=== PATIENT | female | born 1985 | race Hispanic/Latino ===

== ENCOUNTER 2020-04-04 21:18 | Emergency (ER) | payer SELFPAY ==
[2020-04-04 21:21] VITALS: BP 118/72; PULSE 80; RESP 18; TEMP 36.7; O2SAT 98
--- NOTE | 2020-04-05 02:35 | ED.EXTPRO ---
HPI - Extremity Problem General Chief complaint: Extremity Problem,Nontraumatic Stated complaint: Shortness of breath Time Seen by Provider: 04/05/20 02:33 Source: patient, family and EMS Mode of arrival: EMS Limitations: no limitations History of Present Illness HPI Narrative: 34-year-old woman with no significant past medical history presents to the emergency room after experiencing tachypnea tachycardia carpal pedal spasm and significant anxiety. She states that she was driving not having a particularly bad day or dealing with any acute anxiety or issues when she began to breathe faster for unclear reasons and then developed carpal pedal spasms. Not knowing what this was she became even more anxious more short of breath and developed mild chest pain. She pulled to the side of the road by [employer] and asked her children to get her a glass of water from [employer]. As symptoms continue to worsen 911 was called. On arrival in the emergency department she is clearly anxious, hyperventilating and experiencing carpal pedal spasm Related Data Allergies Allergy/AdvReac Type Severity Reaction Status Date / Time No Known Drug Allergies Allergy Verified 04/04/20 21:23 Review of Systems Review of Systems Narrative: Pertinent positive and negative findings as per HPI Remainder of review of systems is otherwise unremarkable for Constitutional: Fevers, chills, weakness ENT: No sore throat, neck pain, ear pain CV: Chest pain, palpitations, dyspnea on exertion Respiratory: Cough, wheeze, dyspnea GI: Nausea, vomiting, diarrhea, change in bowel habits, black or bloody stools : Dysuria, hematuria, flank pain MS: Muscle weakness, numbness, joint swelling or warmth Skin: Rashes, nonhealing lesions Neuro: Syncope, dizziness, tingling Psych: Depression, anxiety, suicidal ideation Patient History Social History Smoking Status: Never smoker Smoking Status: Never smoker alcohol intake frequency: 0-2 drinks per day Substance Use Type: does not use Exam Narrative Exam Narrative: Physical exam was approximately 2 hours after arrival and after she has stopped hyperventilating General: Healthy appearing, in no acute distress. Able to give a complete and coherent history. Well-nourished well-developed HEENT: Moist mucous membranes, normal sclera with reactive pupils, Respiratory: Lungs are clear to auscultation, no wheezing no rales no rhonchi. Full and symmetrical air movement Cardiac: Regular rate and rhythm no murmurs no bruits Abdomen: Soft nontender good bowel tones, no flank pain Skin: Warm and dry, no rashes Neurologic: Grossly neurologically intact with no obvious asymmetries or abnormalities Extremities: No trauma, well perfused Psych: Cooperative, appropriate insight and affect Initial Vital Signs Initial Vital Signs: Vital Signs Temperature 98.1 F 04/04/20 21:21 Pulse Rate 80 04/04/20 21:21 Respiratory Rate 18 04/04/20 21:21 Blood Pressure 118/72 04/04/20 21:21 Pulse Oximetry 98 04/04/20 21:21 Course Vital Signs Vital signs: Vital Signs - 8 hr 04/05/20 02:45 Pulse Rate 88 Respiratory Rate 16 Blood Pressure 122/84 Pulse Oximetry 99 MDM - Extremity (Nontraumatic) MDM Narrative Medical decision making narrative: 34-year-old woman presents with significant hyperventilation carpal pedal spasm with no clear reasons for why this started. She does not describe significant anxiety or situational stressors. She is placed on monitors and reassurance is given. As her breathing slows her CO2 levels return to normal in the carpal pedal spasms resolved she is feeling significantly better. Exam is reassuring and she is having no symptoms at all the time of discharge. Most likely diagnosis this point is panic attack. She is encouraged to follow-up with her primary care physician is safe for home discharge at this time Discharge Plan Departure Patient Disposition: Home Clinical Impression: Panic attack Discharge Date/Time: 04/05/20 02:48 Instructions: DI for Panic Disorder Activity Restrictions/Additional Instructions: Thank you for coming in. Observing you in the emergency department has been very reassuring. I am not finding any suggestion of heart attack, stroke or severe infection. I think that you experienced a panic attack today. These are very frightening but they are not life-threatening. Please feel free to do a bit of reading and research about panic attacks so that you understand them better. Understanding them actually makes it much easier to experience them I encourage you to follow-up with your primary care physician I wish you the best
[2020-04-05 02:45] VITALS: BP 122/84; PULSE 88; RESP 16; O2SAT 99
== END 2020-04-05 02:48 | disposition home or self-care (01) ==
PROVIDERS: Emergency Provider Emergency Medicine
DX: F41.0 Panic disorder [episodic paroxysmal anxiety] (principal)
CPT/HCPCS: 99281

== ENCOUNTER 2024-06-11 14:26 | Emergency (ER) | payer SELFPAY ==
[2024-06-11] VITALS (8 sets, daily range): BP systolic 105–140; BP diastolic 58–88; PULSE 60–82; RESP 8–17; TEMP 36.3; O2SAT 98–100
--- NOTE | 2024-06-11 14:43 | EKG_ITS ---
[place] [id number] [place] [id number] Test Date: 2024-06-11 Pat Name: Kayleen Forrest Department: [facility] Room: Gender: Female [employer] Exchange Architect: ECTOR : 1985 Requested By: Order Number: [id number] Reading MD: Eldon Campoverde MD Measurements Intervals [place] Rate: 61 P: 37 NV: 162 QRS: 55 QRSD: 92 T: -1 QT: 426 QTc: 428 Interpretive Statements Normal sinus rhythm Possible Inferior infarct , age undetermined Electronically Signed On 06-12-2024 7:37:52 PDT by Eldon Campoverde MD
--- NOTE | 2024-06-11 14:43 | DI.RAD.S_ITS ---
PROCEDURE: XR CHEST 1V INDICATIONS: altered mental status TECHNIQUE: One view of the chest was acquired. COMPARISON: None. FINDINGS: Surgical changes and devices: None. Lungs and pleura: Hazy opacities are noted in bilateral hilar region concerning for bilateral perihilar infiltrates. No pleural effusions or pneumothorax. Mediastinum: Mediastinal contours appear normal. Heart size is normal. Bones and chest wall: No suspicious bony lesions. Overlying soft tissues appear unremarkable. IMPRESSION: Finding is suggestive of extensive bilateral perihilar infiltrates. No pleural effusion or pneumothorax. Dictated by: Tarik Elias M.D. on 06/11/2024 at 15:42 Approved by: Tarik Elias M.D. on 06/11/2024 at 15:44
--- NOTE | 2024-06-11 14:54 | DI.CT.S_ITS ---
PROCEDURE: CT HEAD/BRAIN WO CON INDICATIONS: fall, +LOC TECHNIQUE: Noncontrast 4.5 mm thick angled axial sections acquired from the foramen magnum to the vertex, with coronal and sagittal reformats. For radiation dose reduction, the following was used: automated exposure control, adjustment of mA and/or kV according to patient size. COMPARISON: None. FINDINGS: Image quality: Diagnostic. CSF spaces: Basal cisterns are patent. No extra-axial fluid collections. Ventricles are normal in size and shape. Brain: No midline shift. No intracranial masses or hemorrhage. Dobson-white matter interface is normal. Skull and face: Calvarium and visualized facial bones are intact, without suspicious lesions. Sinuses: Visualized sinuses and mastoids are clear. IMPRESSION: No acute intracranial pathology. No acute skull fracture. Dictated by: Tarik Elias M.D. on 06/11/2024 at 15:45 Approved by: Tarik Elias M.D. on 06/11/2024 at 15:46
--- NOTE | 2024-06-11 14:54 | DI.CT.S_ITS ---
PROCEDURE: CT CERVICAL SPINE WO CON INDICATIONS: fall, +LOC TECHNIQUE: Noncontrast 3 mm thick sections acquired from the skull base to the T4 level. Sagittal and coronal reformats were then constructed. For radiation dose reduction, the following was used: automated exposure control, adjustment of mA and/or kV according to patient size. COMPARISON: None. FINDINGS: Image quality: Excellent. Bones: No fractures or dislocations. Visualized superior ribs are intact. Soft tissues: Prevertebral soft tissues are normal in thickness. No paravertebral hematomas. No apical pneumothoraces. IMPRESSION: No displaced fracture or traumatic subluxation. Dictated by: Tarik Elias M.D. on 06/11/2024 at 15:46 Approved by: Tarik Elias M.D. on 06/11/2024 at 15:46
[2024-06-11 15:00] LABS: Add Manual Diff / Slide Review NO; Basophils Absolute Auto 100 /uL (0-100); Basophils Percent Auto 0.5 % (0-2); Eosinophils Absolute Auto 100 /uL (0-450); Eosinophils Percent Auto 0.6 % (2-4); Hematocrit 40.5 % (36-46); Hemoglobin 13.5 g/dL (12.0-16.0); Lymphocytes Absolute Auto 3400 /uL (1100-4500); Lymphocytes Percent Auto 26.3 % (25-40); Mean Corpuscular HGB Conc 33.3 % (30-36); Mean Corpuscular Hemoglobin 29.6 PG (26-34); Monocytes Absolute Auto 500 /uL (0-900); Monocytes Percent Auto 4.1 % (3-14); Neutrophils Absolute Auto 8800 /uL (1500-7000); Neutrophils Percent Auto 68.5 % (50-75); Platelet Count 360 X10^3/uL (150-400); Red Blood Cell Count 4.55 X10^6/uL (4.0-5.2); Red Cell Distribution Width 12.9 % (11.6-14.8); White Blood Cell Count 12.9 X10^3/uL (4.5-11.0)
[2024-06-11 15:18] LABS: Alanine Aminotransferase 30 IU/L (<35); Albumin 4.3 g/dL (3.5-5.0); Albumin Globulin Ratio 1.4 (1.0-2.8); Alkaline Phosphatase 90 U/L (38-126); Aspartate Aminotransferase 29 IU/L (14-36); Bilirubin Total 0.9 mg/dL (0.2-1.3); Blood Urea Nitrogen 12 mg/dL (7-17); Calcium 8.8 mg/dL (8.4-10.2); Carbon Dioxide 18 mmol/L (22-32); Chloride 106 mmol/L (98-107); Estimated Glomerular Filt Rate > 60 mL/min (>60); Globulin 3.1 g/dL (1.7-4.1); Glucose 153 mg/dL (70-100); HEMOLYSIS 16 (0-50); Potassium 3.1 mmol/L (3.4-5.1); Sodium 136 mmol/L (137-145); Total Protein 7.4 g/dL (6.3-8.2)
[2024-06-11 15:41] LABS: Ammonia (NH3) < 9 umol/L (9-30)
[2024-06-11 16:18] LABS: Ur Creatinine Normal (Normal); Ur Specific Gravity Normal (Normal); Urine pH Normal (Normal)
[2024-06-11 16:19] LABS: Urine Amphetamines Negative (Negative); Urine Barbiturates Negative (Negative); Urine Benzodiazepines Negative (Negative); Urine Cocaine Negative (Negative); Urine MDMA Negative (Negative); Urine Methadone Negative (Negative); Urine Methamphetamines Negative (Negative); Urine Opiates Negative (Negative); Urine Oxycodone Negative (Negative); Urine Phencyclidine Negative (Negative); Urine THC Negative (Negative); Urine Tricyclic Antidepressant Negative (Negative)
--- NOTE | 2024-06-11 16:33 | ED.WEAKNESS ---
HPI - Weakness General Chief complaint: Weakness Stated complaint: Fell can't move hands, dizzy Time Seen by Provider: 06/11/24 15:41 History of Present Illness HPI Narrative: Patient is a 39-year-old healthy female presenting today with a syncopal episode. She is Bahamian-speaking parts remover services are used in is at bedside. She reports that she was washing dishes when she felt faint and to the ground. There was some shaking she felt very dizzy and unable to get. She was unable to walk did come in by POV. She says that she has not been ill she has no abdominal pain nausea or vomiting. She reports some tingling in both hands feet. She did not bite her tongue or have urinary incontinence. She has no history of seizures. She had coffee and some toast this morning. This has never happened to her before. Related Data Allergies Allergy/AdvReac Type Severity Reaction Status Date / Time No Known Drug Allergies Allergy Verified 04/04/20 21:23 Patient History Social History Smoking Status: Never smoker Smoking Status: Never smoker alcohol intake frequency: 0-2 drinks per day Substance Use Type: does not use Exam Initial Vital Signs Initial Vital Signs: Vital Signs Temperature 97.4 F L 06/11/24 14:33 Pulse Rate 64 06/11/24 14:33 Respiratory Rate 16 06/11/24 14:33 Blood Pressure 109/58 L 06/11/24 14:33 Pulse Oximetry 99 06/11/24 14:33 Oxygen Delivery Method Room Air 06/11/24 14:33 GENERAL: Alert 39-year-old female and in no acute distress. HEENT: Head atraumatic,EOMI, pupils reactive, face symmetric, moist mucous membranes CARDIOVASCULAR: Regular rate and rhythm without murmurs, rubs or gallops. RESPIRATORY: Breath sounds equal bilaterally, no wheezes rales or rhonchi. ABDOMEN: Soft, nontender. Normoactive bowel sounds all 4 quadrants. No guarding or rebound. EXTREMITIES: Normal range of motion, no clubbing or edema. Neurovascularly intact NEUROLOGICAL: Alert and oriented x4.Normal gait and speech. Cranial nerves II through XII grossly intact. Good [id number], good [id number], strength equal bilaterally, no dysarthria or aphasia, sensation in tact to soft touch bilaterally, no visual changes, no facial droop SKIN: Warm, dry, no laceration, no petechiae, no rashes or lesions. Scores NIH Stroke Scale Level of Conciousness: Alert, keenly responsive Ask month/age: Answers both questions correctly. Open/close eyes, close hand: Performs both tasks correctly Best gaze horizontal: Normal Visual ramirez: No visual loss Facial palsy: Normal symetrical movement Left arm drift: No drift for full 10 sec Right arm drift: No drift for full 10 sec Left leg drift: No drift for full 5 sec Right leg drift: No drift for full 5 sec Limb ataxia: Absent Sensory on face/arms/legs: Normal, no sensory loss Best language: No aphasia, normal Dysarthria: Normal Extinction or inattention: No abnormality Total NIH Stroke scale score: 0 Course Orders Ordered: Discontinued Medications Sodium Chloride (Normal Saline 0.9%) 1,000 mls @ 1,000 mls/hr IV BOLUS ONE Stop: 06/11/24 17:44 Last Admin: 06/11/24 17:19 Dose: 1,000 mls/hr Documented By: PIA Vital Signs Vital signs: Vital Signs - 8 hr 06/11/24 14:33 06/11/24 15:55 06/11/24 15:55 Temperature 97.4 F L Pulse Rate 64 69 Respiratory Rate 16 13 Blood Pressure 109/58 L 105/71 Pulse Oximetry 99 99 Oxygen Delivery Method Room Air MDM - Weakness Lab Data 06/11/24 14:47 06/11/24 14:47 Labs: Lab Results 06/11/24 06/11/24 06/11/24 Range/Units 13:51 14:47 15:25 WBC 12.9 H (4.5-11.0) X10^3/uL RBC 4.55 (4.0-5.2) X10^6/uL Hgb 13.5 (12.0-16.0) g/dL Hct 40.5 (36-46) % MCV 89.0 (80-100) fL MCH 29.6 (26-34) PG MCHC 33.3 (30-36) % RDW 12.9 (11.6-14.8) % Plt Count 360 (150-400) X10^3/uL Neut % (Auto) 68.5 (50-75) % Lymph % (Auto) 26.3 (25-40) % [place] % (Auto) 4.1 (3-14) % Eos % (Auto) 0.6 L (2-4) % Baso % (Auto) 0.5 (0-2) % Neut # (Auto) 8800 H (5013-1506) /uL Lymph # (Auto) 3400 (4217-0918) /uL [place] # (Auto) 500 (0-900) /uL Eos # (Auto) 100 (0-450) /uL Baso # (Auto) 100 (0-100) /uL Sodium 136 L (137-145) mmol/L Potassium 3.1 L (3.4-5.1) mmol/L Chloride 106 (98-107) mmol/L Carbon Dioxide 18 L (22-32) mmol/L BUN 12 (7-17) mg/dL Creatinine 0.50 L (0.52-1.04) mg/dL Estimated GFR > 60 (>60) mL/min BUN/Creatinine Ratio 24.0 H (6-22) Glucose 153 H (70-100) mg/dL Lactate (0.7-2.1) mmol/L Calcium 8.8 (8.4-10.2) mg/dL Total Bilirubin 0.9 (0.2-1.3) mg/dL AST 29 (14-36) IU/L ALT 30 (<35) IU/L Alkaline Phosphatase 90 (38-126) U/L Ammonia < 9 L (9-30) umol/L Total Protein 7.4 (6.3-8.2) g/dL Albumin 4.3 (3.5-5.0) g/dL Globulin 3.1 (1.7-4.1) g/dL Albumin/Globulin Ratio 1.4 (1.0-2.8) Prolactin 20.6 H (3.0-18.6) ng/mL Salicylates (<20) mg/dL U Opiates 300ng/mL cut Negative (Negative) Ur Oxycodone Screen Negative (Negative) Urine Methadone Screen Negative (Negative) Acetaminophen (10-30) ug/mL Ur Barbiturates Screen Negative (Negative) U Tricyclic Antidepress Negative (Negative) Ur Phencyclidine Scrn Negative (Negative) Ur Amphetamines Screen Negative (Negative) U Methamphetamines Scrn Negative (Negative) Ur MDMA Scrn (Ecstasy) Negative (Negative) U Benzodiazepines Scrn Negative (Negative) Urine Cocaine Screen Negative (Negative) U Marijuana (THC) Screen Negative (Negative) Urine pH Normal (Normal) Urine Specific [place] Normal (Normal) Ethyl Alcohol ( - 10) mg/dL Ur Creatinine Normal (Normal) 06/11/24 Range/Units 15:41 WBC (4.5-11.0) X10^3/uL RBC (4.0-5.2) X10^6/uL Hgb (12.0-16.0) g/dL Hct (36-46) % MCV (80-100) fL MCH (26-34) PG MCHC (30-36) % RDW (11.6-14.8) % Plt Count (150-400) X10^3/uL Neut % (Auto) (50-75) % Lymph % (Auto) (25-40) % [place] % (Auto) (3-14) % Eos % (Auto) (2-4) % Baso % (Auto) (0-2) % Neut # (Auto) (4357-2459) /uL Lymph # (Auto) (4145-3996) /uL [place] # (Auto) (0-900) /uL Eos # (Auto) (0-450) /uL Baso # (Auto) (0-100) /uL Sodium (137-145) mmol/L Potassium (3.4-5.1) mmol/L Chloride (98-107) mmol/L Carbon Dioxide (22-32) mmol/L BUN (7-17) mg/dL Creatinine (0.52-1.04) mg/dL Estimated GFR (>60) mL/min BUN/Creatinine Ratio (6-22) Glucose (70-100) mg/dL Lactate 2.2 H (0.7-2.1) mmol/L Calcium (8.4-10.2) mg/dL Total Bilirubin (0.2-1.3) mg/dL AST (14-36) IU/L ALT (<35) IU/L Alkaline Phosphatase (38-126) U/L Ammonia (9-30) umol/L Total Protein (6.3-8.2) g/dL Albumin (3.5-5.0) g/dL Globulin (1.7-4.1) g/dL Albumin/Globulin Ratio (1.0-2.8) Prolactin (3.0-18.6) ng/mL Salicylates < 1.0 (<20) mg/dL U Opiates 300ng/mL cut (Negative) Ur Oxycodone Screen (Negative) Urine Methadone Screen (Negative) Acetaminophen < 10 (10-30) ug/mL Ur Barbiturates Screen (Negative) U Tricyclic Antidepress (Negative) Ur Phencyclidine Scrn (Negative) Ur Amphetamines Screen (Negative) U Methamphetamines Scrn (Negative) Ur MDMA Scrn (Ecstasy) (Negative) U Benzodiazepines Scrn (Negative) Urine Cocaine Screen (Negative) U Marijuana (THC) Screen (Negative) Urine pH (Normal) Urine Specific [place] (Normal) Ethyl Alcohol < 10 ( - 10) mg/dL Ur Creatinine (Normal) Point of Care Testing Test Results Negative Glucose POC 137 Urine Dip Bedside Urine Glucose Negative Bedside Urine Bilirubin - Negative Bedside Urine Ketone - Negative Urine Specific [place] 1.015 Bedside Urine Occult Blood - Negative Bedside Urine pH 6.5 Bedside Urine Protein - Negative Bedside Urine Urobilinogen - Negative Bedside Urine Nitrite - Negative Bedside Urine Leukocytes - Negative Esterase Imaging Data Chest x-ray: Radiologist Impression: PROCEDURE: XR CHEST 1V INDICATIONS: altered mental status TECHNIQUE: One view of the chest was acquired. COMPARISON: None. FINDINGS: Surgical changes and devices: None. Lungs and pleura: Hazy opacities are noted in bilateral hilar region concerning for bilateral perihilar infiltrates. No pleural effusions or pneumothorax. Mediastinum: Mediastinal contours appear normal. Heart size is normal. Bones and chest wall: No suspicious bony lesions. Overlying soft tissues appear unremarkable. IMPRESSION: Finding is suggestive of extensive bilateral perihilar infiltrates. No pleural effusion or pneumothorax. Dictated by: Tarik Elias M.D. on 06/11/2024 at 15:42 CT - cervical spine: Radiologist Impression: PROCEDURE: CT CERVICAL SPINE WO CON INDICATIONS: fall, +LOC TECHNIQUE: Noncontrast 3 mm thick sections acquired from the skull base to the T4 level. Sagittal and coronal reformats were then constructed. For radiation dose reduction, the following was used: automated exposure control, adjustment of mA and/or kV according to patient size. COMPARISON: None. FINDINGS: Image quality: Excellent. Bones: No fractures or dislocations. Visualized superior ribs are intact. Soft tissues: Prevertebral soft tissues are normal in thickness. No paravertebral hematomas. No apical pneumothoraces. IMPRESSION: No displaced fracture or traumatic subluxation. Dictated by: Tarik Elias M.D. on 06/11/2024 at 15:46 Approved by: Tarik Elias M.D. on 06/11/2024 at 15:46 CT scan - head: Radiologist Impression: PROCEDURE: CT HEAD/BRAIN WO CON INDICATIONS: fall, +LOC TECHNIQUE: Noncontrast 4.5 mm thick angled axial sections acquired from the foramen magnum to the vertex, with coronal and sagittal reformats. For radiation dose reduction, the following was used: automated exposure control, adjustment of mA and/or kV according to patient size. COMPARISON: None. FINDINGS: Image quality: Diagnostic. CSF spaces: Basal cisterns are patent. No extra-axial fluid collections. Ventricles are normal in size and shape. Brain: No midline shift. No intracranial masses or hemorrhage. Dobson-white matter interface is normal. Skull and face: Calvarium and visualized facial bones are intact, without suspicious lesions. Sinuses: Visualized sinuses and mastoids are clear. IMPRESSION: No acute intracranial pathology. No acute skull fracture. Dictated by: Tarik Elias M.D. on 06/11/2024 at 15:45 ECG Data Attestation: I personally reviewed and interpreted this ECG as follows: Prior ECG tracings: available for review Interpretation: Normal sinus rhythm rate 61 NC interval 162 QRS [address] changes MDM Narrative Medical decision making narrative: [facility] CC: Syncopal episode Complicating co-morbidities: Healthy Medical records reviewed: Previous ED visit for panic attacks Differential considered: Seizure, syncope, arrhythmia, intracranial hemorrhage, anemia electrolyte abnormality Exam documented above, pertinent findings include: NIH stroke scale 0, no focal deficits well-appearing speaking clearly Lab Test results independently reviewed as above. Pertinent findings: CBC WBC 12.9 no anemia CMP shows mild hypokalemia 3.1 Lactate 2.2 Prolactin 20.6 Urinalysis no or evidence of UTI Independently reviewed EKG as above no ischemia or arrhythmia Imaging studies independently reviewed: Head CT cervical spine and chest x-ray do not show any acute abnormality there is no intracranial hemorrhage fracture. Chest x-ray does show some bilateral perihilar infiltrates Consultations: None Treatments: IV fluids Re-evaluations: Ambulated to the bathroom appears to be neurologically intact Discussion: Patient is a healthy 39-year-old female who was feeling well yesterday and has syncopal episode today. There does not appear to be seizure activity she had a mild elevation of lactate of 2.2 with mild leukocytosis. Her urinalysis is clear. She has no signs or symptoms of pneumonia viral illness, despite chest x-ray with bilateral perihilar infiltrates. I do suspect that she passed out for an unclear reason. She has been on the monitor no cardiac arrhythmia. Computer Systems Administrator services used. At this time recommended increasing fluids encouraged her that if she should pass out again then she should return the ED Discharge Plan Departure Patient Disposition: Home Clinical Impression: Syncope Instructions: DI for Syncope in Adults (Fainting) Activity Restrictions/Additional Instructions: *You have been diagnosed with Fainting *What to do: Increase fluids, probably not a seizure *Continue to take medications as directed *Follow up with your primary care provider in 2-3 days or call [phone] *Return to ER if you should have recurrent passing out or any new, worsening or concerning symptoms Stand Alone Forms: Patient Portal/API
[2024-06-11 16:42] LABS: Acetaminophen < 10 ug/mL (10-30); Ethanol (ETOH) < 10 mg/dL; Lactate (Lactic Acid) 2.2 mmol/L (0.7-2.1); Salicylate < 1.0 mg/dL (<20)
[2024-06-11] MEDS: SODIUM CHLORIDE 0.9% 1,000 ML 1000 ML IV (17:19)
[2024-06-11 18:03] LABS: Prolactin 20.6 ng/mL (3.0-18.6)
[2024-06-11 18:12] LABS: Reflexed Lactate in 2 Hours Y
== END 2024-06-11 18:55 | disposition home or self-care (01) ==
PROVIDERS: Emergency Provider Emergency Medicine
DX: R55 Syncope and collapse (principal); R41.82 Altered mental status, unspecified
CPT/HCPCS: 36415; 70450; 71045; 72125; 80053; 80305; 80320; 80329; 81003; 81025; 82140; 82962; 83605; 84146; 85025; 93005; 93010; 96360; 96361; 99284; G0480